=== PATIENT | male | born 1970 | race Caucasian/White ===

== ENCOUNTER 2018-01-26 19:22 | Emergency (ER) | payer SELFPAY ==
[~2018-01-26] VITALS: Ht 182.8 cm; Wt 74.8 kg
[~2018-01-26 19:22] MED LIST: VICODIN ES 7501 TAB PO
[2018-01-26 19:56] LABS: BASO # 0.1 10*3/uL (0.0-0.1); BASO % 0.9 % (0.0-1.0); EOS # 0.4 10*3/uL (0.0-0.4); EOS % 5.6 % (1.0-4.0); HEMATOCRIT 41.2 % (42.0-52.0); HEMOGLOBIN 14.3 g/dl (14.0-18.0); LYMPH # 2.2 10*3/uL (1.3-4.4); LYMPH % 33.1 % (27.0-41.0); MEAN CELL VOLUME 96.7 fl (80.0-94.0); MEAN CORPUSCULAR HGB 33.6 pg (27.0-31.0); MEAN CORPUSCULAR HGB CONC 34.7 g/dl (33.0-37.0); MEAN PLATELET VOLUME 9.2 fl (9.6-12.3); MONO # 0.9 10*3/uL (0.1-1.0); MONO % 13.3 % (3.0-9.0); NEUT # 3.1 10*3/uL (2.3-7.9); NEUT % 46.5 % (47.0-73.0); PLATELET COUNT AUTOMATED 216 10*3/uL (130-400); RED BLOOD COUNT 4.26 10*6/uL (4.50-5.90); RED CELL DISTRI WIDTH 13.1 % (0-14.5); WHITE BLOOD COUNT 6.8 10*3/uL (4.8-10.8)
[2018-01-26 20:34] LABS: ALBUMIN 3.8 gm/dl (3.1-4.5); ALKALINE PHOSPHATASE 82 U/L (45-117); BUN 4 mg/dl (7-24); CHLORIDE 98 mmol/L (98-107); CREATININE 0.66 mg/dL (0.70-1.30); POTASSIUM 4.1 mmol/L (3.5-5.1); SGOT/AST 193 IU/L (3-35); SGPT/ALT 122 U/L (12-78); SODIUM 134 mmol/L (136-145); TOTAL PROTEIN 7.4 gm/dL (6.4-8.2)
[2018-01-26 20:39] LABS: ACETAMINOPHEN (TYLENOL) < 2.0 ug/ml (10-30)
[2018-01-26 20:45] LABS: BILIRUBIN NEGATIVE (NEGATIVE); BLOOD NEGATIVE (NEGATIVE); CLARITY CLEAR (CLEAR); COLOR YELLOW (YELLOW); GLUCOSE NEGATIVE (NEGATIVE); KETONE NEGATIVE (NEGATIVE); LEUKO ESTERASE TRACE (NEGATIVE); NITRITE NEGATIVE (NEGATIVE); SPECIFIC GRAVITY <= 1.005 (1.005-1.030); UROBILINOGEN 0.2 E.U./dl (0.2-1.0)
[2018-01-26 20:53] LABS: URINE AMPHETAMINES < 1000 (1000ng/ml); URINE BARBITURATES < 200 (200ng/ml); URINE BENZODIAZEPINES < 200 (200ng/ml); URINE CANNABINOIDS (THC) < 50 (50ng/ml); URINE COCAINE < 300 (300ng/ml); URINE METHADONE < 300 (300ng/ml); URINE OPIATES < 300 (300ng/ml)
[2018-01-26 20:54] LABS: URINE PHENCYCLIDINE < 25 (25ng/ml)
[2018-01-26 21:05] LABS: BACTERIA TRACE
[2018-01-26] MEDS ORDERED: NATURE'S BLEND F1 MG PO (21:06)
[2018-01-26] MEDS ORDERED: NATURE'S BLEND100 M2 PO (21:06)
== END 2018-01-26 21:15 | disposition home or self-care (01) ==
LOC: ED 19:22
PROVIDERS: Emergency Medicine Emergency Medical Services
DX: S00.81XA Abrasion of other part of head, initial encounter (principal); S20.319A Abrasion of unspecified front wall of thorax, initial encounter; F10.129 Alcohol abuse with intoxication, unspecified; W17.89XA Other fall from one level to another, initial encounter; Y93.89 Activity, other specified; Y92.099 Unspecified place in other non-institutional residence as the place of occurrence of the external cause; Y99.9 Unspecified external cause status; Y90.9 Presence of alcohol in blood, level not specified

== ENCOUNTER 2020-08-30 13:06 | Emergency (ER) | payer SELFPAY ==
[~2020-08-30] VITALS: Ht 180.3 cm; Wt 77.1 kg
[~2020-08-30 13:06] MED LIST changes: +NATURE'S BLEND F1 MG PO; +NATURE'S BLEND100 M2 PO
[2020-08-30] MEDS ORDERED: PREDNISONE10 MG PO (14:02)
[2020-08-30] MEDS ORDERED: CEPHALEXIN500 M1 PO (14:02)
== END 2020-08-30 14:20 | disposition home or self-care (01) ==
LOC: ED 13:06
DX: L23.9 Allergic contact dermatitis, unspecified cause (principal)

== ENCOUNTER 2023-01-06 12:20 | Emergency (ER) | payer OTHER ==
[2023-01-06] VITALS (8 sets, daily range): BP systolic 109–124; BP diastolic 58–76
[~2023-01-06] VITALS: Ht 170.1 cm; Wt 77.6 kg
[~2023-01-06 12:20] MED LIST changes: +CEPHALEXIN500 M1 PO; +PREDNISONE10 MG PO
[2023-01-06 12:41] LABS: MEAN CELL VOLUME 64.4 fl (80.0-94.0); MEAN CORPUSCULAR HGB CONC 27.9 g/dl (33.0-37.0); MEAN PLATELET VOLUME 9.4 fl (9.6-12.3); NUCLEATED RED BLOOD CELL 0.3 % (0.0-0.0); PLATELET COUNT AUTOMATED 207 10*3/uL (130-400); RED BLOOD COUNT 3.23 10*6/uL (4.50-5.90); RED CELL DISTRI WIDTH 21.2 % (0-14.5); WHITE BLOOD COUNT 10.3 10*3/uL (4.8-10.8)
[2023-01-06 12:51] LABS: MANUAL DIFF REFLEX YES
[2023-01-06 12:53] LABS: HEMATOCRIT 20.8 % (42.0-52.0)
[2023-01-06 12:58] LABS: ALKALINE PHOSPHATASE 59 U/L (46-116); BUN 13 mg/dl (9-23); CHLORIDE 89 mmol/L (98-107); SGPT/ALT 32 U/L (10-49); TOTAL PROTEIN 6.5 gm/dL (6.0-8.0)
[2023-01-06 13:05] LABS: POTASSIUM 2.4 mmol/L (3.4-5.1)
[2023-01-06 13:15] LABS: PLATELET SUFFICIENCY NORMAL (NORMAL); TOTAL CELLS COUNTED 100 #CELLS
[2023-01-06 13:16] LABS: MICROCYTOSIS SLIGHT; OVALOCYTES FEW; POLYCHROMASIA SLIGHT
[2023-01-06 13:17] LABS: TARGET CELLS FEW
[2023-01-06 13:18] LABS: ACANTHOCYTES FEW
== END 2023-01-06 18:31 | disposition left against medical advice (07) ==
LOC: ED 12:20
PROVIDERS: Student in an Organized Health Care Education/Training Program
DX: D64.9 Anemia, unspecified (principal); F10.239 Alcohol dependence with withdrawal, unspecified; E87.1 Hypo-osmolality and hyponatremia; Y90.9 Presence of alcohol in blood, level not specified